=== PATIENT | female | born 1965 | race African-American/Black ===

== ENCOUNTER 2017-05-11 23:19 | Emergency (ER) | payer OTHER ==
[~2017-05-11] VITALS: Ht 172.7 cm; Wt 83.9 kg
[~2017-05-11 23:19] MED LIST: ACETAMINOPHEN-1 EAC1 PO; AMITRIPTYLINE H50 M2 PO; ANAPROX DS550 MG PO; ATENOLOL 25 MG25 M1; ATENOLOL-CHLOR1 EAC2; AZITHROMYCIN 2250 MG PO; BENICAR20 MG PO; CARISOPRODOL; CARISOPRODOL 3350 MG PO; CIPROFLOXACIN500 M3 PO; CITROMA296 ML PO; CLEOCIN HCL300 MG PO; COLACE100 MG PO; FLEET ENEMA EX230 ML RC; FLEXERIL PO; GLUCOPHAGE XR750 MG PO; GLYBURIDE 2.52.5 M1 PO; HYDROCHLOROTHIA25 M1; HYDROCODON-ACE1 EAC7 PO; HYDROCODON-ACE1 EACH PO; HYDROCODONE; INDAPAMIDE1.25 MG PO; KEFLEX500 MG; KEFLEX500 MG PO; KLOR-CON 1010 MEQ PO; LOPRESSOR 50 MG50 M1; MEDROLDOSEPACK PO; MIRALAX17 GM PO; NEURONTIN 300300 M1 PO; NORCO 5-325 TA1 EAC1 PO; NORCO 5-325 TA1 EACH PO; NORFLEX100 MG PO; PREDNISONE 20 M20 M1 PO; PROAIR HFA8.5 GM PO; PROMETHAZINE D480 ML PO; ROBAXIN500 MG PO; SOMA250 MG PO; TOPROL XL25 MG PO; TUSSIONEX PENN473 ML PO; ULTRAM 50MG TAB50 MG PO; VENTOLIN HFA 1818 GM INH; ZOFRAN ODT4 MG PO; ZPAK PO
[2017-05-11 23:23] VITALS: BP 124/81
[2017-05-11] MEDS ORDERED: ZPAK PO (23:44)
[2017-05-11] MEDS ORDERED: PREDNISONE 20 M20 M1 PO (23:44)
== END 2017-05-11 23:49 | disposition home or self-care (01) ==
LOC: M.ERS 23:19
DX: J06.9 Acute upper respiratory infection, unspecified (principal); I10 Essential (primary) hypertension; E11.40 Type 2 diabetes mellitus with diabetic neuropathy, unspecified; G89.29 Other chronic pain; M54.9 Dorsalgia, unspecified; F17.210 Nicotine dependence, cigarettes, uncomplicated; Z90.710 Acquired absence of both cervix and uterus; Z90.89 Acquired absence of other organs; Z88.8 Allergy status to other drugs, medicaments and biological substances; Z88.0 Allergy status to penicillin; Z88.2 Allergy status to sulfonamides; Z88.6 Allergy status to analgesic agent

== ENCOUNTER 2018-05-03 16:44 | Emergency (ER) | payer OTHER ==
[~2018-05-03] VITALS: Ht 172.7 cm; Wt 99.8 kg
[2018-05-03 18:32] LABS: ABSOLUTE BASOPHILS 0.1 thou/uL (0.0-0.2); ABSOLUTE LYMPHOCYTES 3.1 thou/uL (0.8-5.3); ABSOLUTE MONOCYTES 0.4 thou/uL (0.0-1.2); ABSOLUTE NEUTROPHILS 6.9 thou/uL (1.6-8.1); BASOPHILS 0.9 %; EOSINOPHILS 0.2 %; HEMATOCRIT 38.3 % (37.0-47.0); HEMOGLOBIN 12.4 gm/dL (12.0-15.0); LYMPHOCYTES 29.5 %; MCH 29.6 pg (26.0-34.0); MCHC 32.3 g/dL (28.0-37.0); MCV 91.6 fL (80.0-100.0); MONOCYTES 4.2 %; MPV 9.5 fl. (7.2-11.1); NUCLEATED RBCS 0 /100WBC; PLATELET COUNT* 296 thou/uL (150-400); POLYS 65.2 %; RBC 4.18 mil/uL (4.20-5.00); RDW-CV 16.6 % (10.5-14.5); WBC 10.6 thou/uL (4.0-11.0)
[2018-05-03 18:42] LABS: ANION GAP 8 mmol/L (7-16); BUN 16 mg/dL (7-18); CALCIUM 9.1 mg/dL (8.5-10.1); CHLORIDE 105 mmol/L (98-107); CO2 27 mmol/L (21-32); CREATININE 0.8 mg/dL (0.6-1.3); GLUCOSE 158 mg/dL (70-99); POTASSIUM 3.6 mmol/L (3.5-5.1); SODIUM 140 mmol/L (136-145)
[2018-05-03 18:56] LABS: ALBUMIN 3.4 g/dL (3.4-5.0); ALKALINE PHOSPHATASE 83 U/L (46-116); SGOT 17 U/L (15-37); SGPT 22 U/L (30-65); TOTAL BILIRUBIN 0.1 mg/dL (<0.1-1.0); TROPONIN-I LEVEL <0.06 ng/mL (<0.06)
[2018-05-03] MEDS ORDERED: PROMETHAZINE-C473 ML PO (19:34)
[2018-05-03 19:51] VITALS: BP 133/68
--- NOTE | 2018-05-04 11:05 | EKG ---
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 : 1965 Requested By: Samira Cuellar Order Number: [id number] MD: Feliz Velásquez Measurements Intervals [place] Rate: 92 P: 0 NE: 39 QRS: -8 QRSD: 93 T: 46 QT: 463 QTc: 573 Interpretive Statements Sinus rhythm Short NE interval Borderline abnrm T, anterolateral leads Prolonged QT interval Artifact in lead(s) I,II,III,aVR,aVL,aVF,V1,V2,V3,V4,V5,V6 Compared to ECG 03/05/2014 22:59:05 artifact noted Electronically Signed On 05-04-2018 11:05:44 PRODUCT DEVELOPMENT ASSISTANT by Feliz Velásquez [email or web address] <ELECTRONICALLY SIGNED> By: Feliz Velásquez MD, FAC 05/04/18 1105 1828 1828 Feliz Velásquez MD, [facility] /EPI
== END 2018-05-03 19:53 | disposition home or self-care (01) ==
LOC: M.ERS 16:44
PROVIDERS: Physician Assistant
DX: J18.9 Pneumonia, unspecified organism (principal); F17.210 Nicotine dependence, cigarettes, uncomplicated; I10 Essential (primary) hypertension; E11.9 Type 2 diabetes mellitus without complications; Z88.8 Allergy status to other drugs, medicaments and biological substances; Z88.0 Allergy status to penicillin; Z88.2 Allergy status to sulfonamides; Z88.6 Allergy status to analgesic agent; Z90.710 Acquired absence of both cervix and uterus; Z90.89 Acquired absence of other organs

== ENCOUNTER 2019-12-13 13:47 | Observation (INO) | payer OTHER ==
[~2019-12-13] VITALS: Ht 172.7 cm; Wt 93.6 kg
[~2019-12-13 13:47] MED LIST changes: +PROMETHAZINE-C473 ML PO
[2019-12-13 13:59] VITALS: BP 157/88
[2019-12-13 14:30] LABS: ABSOLUTE BASOPHILS 0.2 thou/uL (0.0-0.2); ABSOLUTE EOSINOPHILS 0.3 thou/uL (0.0-0.7); ABSOLUTE LYMPHOCYTES 2.8 thou/uL (0.8-5.3); ABSOLUTE MONOCYTES 0.7 thou/uL (0.0-1.2); ABSOLUTE NEUTROPHILS 6.1 thou/uL (1.6-8.1); BASOPHILS 1.6 %; EOSINOPHILS 3.4 %; HEMOGLOBIN 12.2 gm/dL (12.0-15.0); LYMPHOCYTES 27.9 %; MCH 29.4 pg (26.0-34.0); MONOCYTES 7.1 %; MPV 8.8 fl. (7.2-11.1); NUCLEATED RBCS 0 /100WBC; PLATELET COUNT* 323 thou/uL (150-400); RBC 4.16 mil/uL (4.20-5.00); RDW-CV 17.8 % (10.5-14.5); WBC 10.1 thou/uL (4.0-11.0)
[2019-12-13 14:35] LABS: CALCIUM 8.6 mg/dL (8.5-10.1); CREATININE 1.5 mg/dL (0.6-1.3); POTASSIUM 3.4 mmol/L (3.5-5.1)
[2019-12-13 14:39] LABS: MAGNESIUM 1.6 mg/dL (1.8-2.4); TOTAL BILIRUBIN 0.2 mg/dL (<0.1-1.0); TOTAL PROTEIN 7.5 g/dL (6.4-8.2)
[2019-12-13 15:02] LABS: INR 1.2; PROTIME 12.5 Seconds (9.20-11.50)
[2019-12-13 15:18] LABS: BE -2.5 mmol/L (-2 to +3); PCO2 37.8 mmHg (35.0-45.0); PO2 67.8 mmHg (75.0-100.0); pH 7.384 (7.340-7.450)
[2019-12-13 15:52] LABS: URINE BLOOD TRACE (Negative); URINE CLARITY CLEAR; URINE COLOR YELLOW; URINE GLUCOSE-RANDOM NEGATIVE (Negative); URINE KETONES NEGATIVE (Negative); URINE NITRITE-REFLEX NEGATIVE (Negative); URINE PROTEIN 1+ (Negative); URINE SPECIFIC GRAVITY >= 1.030 (1.005-1.030); URINE UROBILINOGEN 0.2 E.U./dl (0.2-1.0)
[2019-12-13 15:53] LABS: ICTOTEST (BILI CONFIRMATORY) ND (Negative); URINE BILIRUBIN 1+ (Negative); URINE LEUKOCYTES-REFLEX 2+ (Negative)
[2019-12-13] MEDS ORDERED: NORCO 10-325 T1 EACH PO (15:57)
[2019-12-13 16:01] LABS: BACTERIA-REFLEX >30 Many /HPF (None Seen); CASTS None Seen /LPF (None Seen); CRYSTALS None Seen /LPF (None Seen); SQUAMOUS 0-3 Few /LPF (0-3); URINE RBC 0-2 Rare /HPF (0-2)
--- NOTE | 2019-12-13 16:08 | EKG ---
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 : 1965 Requested By: Samira Stewart Order Number: [id number] MD: Feliz Velásquez Measurements Intervals [place] Rate: 80 P: 34 FL: 174 QRS: -3 QRSD: 109 T: -17 QT: 403 QTc: 465 Interpretive Statements Sinus rhythm nonspecific t wave changes Baseline wander in lead(s) II,III,aVR,aVL,aVF Compared to ECG 05/03/2018 18:28:27 Short FL interval no longer present Prolonged QT interval no longer present Electronically Signed On 12-13-2019 16:08:37 CDT by Feliz Velásquez [email or web address] <ELECTRONICALLY SIGNED> By: Feliz Velásquez MD, FAC 12/13/19 1608 1356 1356 Feliz Velásquez MD, FAC /EPI
[2019-12-13 16:58] LABS: AMP/METHAMP Negative (Negative); BARBITURATES Negative (Negative); BENZODIAZEPINES Negative (Negative); COCAINE Negative (Negative); METHADONE Negative (Negative); OPIATES POSITIVE (Negative); PCP Negative (Negative); THC Negative (Negative)
[2019-12-13 20:00] VITALS: BP 113/68
[2019-12-13 20:20] VITALS: BP 104/75
[2019-12-14] VITALS: BP 144/83
[2019-12-14 04:00] VITALS: BP 127/73
[2019-12-14 08:00] VITALS: BP 137/95
[2019-12-14 12:00] VITALS: BP 125/73
[2019-12-14] MEDS ORDERED: CEFDINIR300 MG PO (14:36)
[2019-12-14] MEDS ORDERED: VITAMIN B-1100 M1 PO (14:37)
[2019-12-14 14:58] VITALS: BP 125/73
[2019-12-14] MEDS ORDERED: GLYBURIDE 2.52.5 MG PO (14:58)
== END 2019-12-14 15:26 | disposition home or self-care (01) ==
LOC: M.ERS 13:47 → M.TBA-ER 16:36 → M.2W 16:36
PROVIDERS: Personal Emergency Response Attendant; ADMIT Internal Medicine; ATTEND Internal Medicine
DX: J96.21 Acute and chronic respiratory failure with hypoxia (principal); G93.41 Metabolic encephalopathy; E87.2 Acidosis; N39.0 Urinary tract infection, site not specified; R41.82 Altered mental status, unspecified; R53.1 Weakness; R27.0 Ataxia, unspecified; J18.9 Pneumonia, unspecified organism; G89.29 Other chronic pain; E11.40 Type 2 diabetes mellitus with diabetic neuropathy, unspecified; I10 Essential (primary) hypertension; F17.210 Nicotine dependence, cigarettes, uncomplicated; Z20.828 Contact with and (suspected) exposure to other viral communicable diseases; Z79.84 Long term (current) use of oral hypoglycemic drugs; Z79.899 Other long term (current) drug therapy; Z86.19 Personal history of other infectious and parasitic diseases

== ENCOUNTER 2020-01-14 04:00 | Emergency (ER) | payer OTHER ==
[~2020-01-14] VITALS: Ht 172.7 cm; Wt 83.9 kg
[~2020-01-14 04:00] MED LIST changes: +CEFDINIR300 MG PO; +GLYBURIDE 2.52.5 MG PO; +NORCO 10-325 T1 EACH PO; +VITAMIN B-1100 M1 PO
[2020-01-14 04:37] LABS: URINE BILIRUBIN NEGATIVE (Negative); URINE BLOOD NEGATIVE (Negative); URINE CLARITY CLEAR; URINE COLOR YELLOW; URINE GLUCOSE-RANDOM 2+ (Negative); URINE KETONES NEGATIVE (Negative); URINE LEUKOCYTES-REFLEX NEGATIVE (Negative); URINE NITRITE-REFLEX NEGATIVE (Negative); URINE PROTEIN NEGATIVE (Negative); URINE SPECIFIC GRAVITY >= 1.030 (1.005-1.030); URINE UROBILINOGEN 0.2 E.U./dl (0.2-1.0)
[2020-01-14 04:37] LABS: ABSOLUTE EOSINOPHILS 0.3 thou/uL (0.0-0.7); ABSOLUTE LYMPHOCYTES 2.9 thou/uL (0.8-5.3); ABSOLUTE MONOCYTES 0.4 thou/uL (0.0-1.2); ABSOLUTE NEUTROPHILS 2.8 thou/uL (1.6-8.1); BASOPHILS 0.5 %; EOSINOPHILS 4.1 %; HEMATOCRIT 36.2 % (37.0-47.0); HEMOGLOBIN 11.6 gm/dL (12.0-15.0); LYMPHOCYTES 45.5 %; MCH 28.7 pg (26.0-34.0); MCHC 32.2 g/dL (28.0-37.0); MCV 89.2 fL (80.0-100.0); MONOCYTES 6.5 %; MPV 9.2 fl. (7.2-11.1); NUCLEATED RBCS 0 /100WBC; PLATELET COUNT* 214 thou/uL (150-400); POLYS 43.4 %; RBC 4.06 mil/uL (4.20-5.00); WBC 6.5 thou/uL (4.0-11.0)
[2020-01-14 04:44] LABS: AMP/METHAMP Negative (Negative); BARBITURATES Negative (Negative); BENZODIAZEPINES POSITIVE (Negative); COCAINE Negative (Negative); METHADONE Negative (Negative); OPIATES POSITIVE (Negative); PCP Negative (Negative); THC Negative (Negative)
[2020-01-14 04:55] LABS: CALCIUM 8.6 mg/dL (8.5-10.1); CREATININE 0.8 mg/dL (0.6-1.3); POTASSIUM 3.7 mmol/L (3.5-5.1)
[2020-01-14 05:07] LABS: ALBUMIN 3.3 g/dL (3.4-5.0); MAGNESIUM 1.6 mg/dL (1.8-2.4); TOTAL BILIRUBIN 0.1 mg/dL (<0.1-1.0)
[2020-01-14 08:04] VITALS: BP 185/88
--- NOTE | 2020-01-14 18:29 | EKG ---
[place] [address] ELECTROCARDIOGRAM REPORT Name: MARK PATEL Room: [facility]#: [id number] Admission: 01/14/20 Attend Phys: Discharge: 01/14/20 Date of : 65 Date of Service: 01/14/20 0432 Report #: [id number] THIS REPORT FOR: //name// 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
== END 2020-01-14 08:05 | disposition still patient (30) ==
LOC: M.ERS 04:00
PROVIDERS: Emergency Medicine
DX: T42.71XA Poisoning by unspecified antiepileptic and sedative-hypnotic drugs, accidental (unintentional), initial encounter (principal); I10 Essential (primary) hypertension; E11.9 Type 2 diabetes mellitus without complications; Z87.891 Personal history of nicotine dependence; Z88.6 Allergy status to analgesic agent; Z88.0 Allergy status to penicillin; Z88.2 Allergy status to sulfonamides; Z88.8 Allergy status to other drugs, medicaments and biological substances; Z79.899 Other long term (current) drug therapy; Z90.710 Acquired absence of both cervix and uterus; Z98.890 Other specified postprocedural states; Y92.89 Other specified places as the place of occurrence of the external cause

== ENCOUNTER 2020-11-06 12:39 | Emergency (ER) | payer OTHER ==
[~2020-11-06] VITALS: Ht 172.7 cm; Wt 83.9 kg
[2020-11-06] MEDS ORDERED: JANUMET 50-1,01 EACH PO (13:03)
[2020-11-06] MEDS ORDERED: GLIPIZIDE 10 MG10 MG PO (13:03)
[2020-11-06 14:32] LABS: MPV 8.4 fl. (7.2-11.1); NUCLEATED RBCS 0 /100WBC
[2020-11-06 14:34] LABS: ABSOLUTE BASOPHILS 0.2 thou/uL (0.0-0.2); ABSOLUTE EOSINOPHILS 0.3 thou/uL (0.0-0.7); ABSOLUTE LYMPHOCYTES 3.7 thou/uL (0.8-5.3); ABSOLUTE MONOCYTES 0.6 thou/uL (0.0-1.2); ABSOLUTE NEUTROPHILS 3.2 thou/uL (1.6-8.1); BASOPHILS 2.6 %; EOSINOPHILS 3.3 %; HEMATOCRIT 42.4 % (37.0-47.0); HEMOGLOBIN 13.6 gm/dL (12.0-15.0); LYMPHOCYTES 46.6 %; MCH 27.8 pg (26.0-34.0); MCV 86.9 fL (80.0-100.0); PLATELET COUNT* 417 thou/uL (150-400); POLYS 40.5 %; RBC 4.88 mil/uL (4.20-5.00); RDW-CV 19.5 % (10.5-14.5)
[2020-11-06 14:44] LABS: CALCIUM 8.9 mg/dL (8.5-10.1); POTASSIUM 3.9 mmol/L (3.5-5.1)
[2020-11-06 14:48] LABS: ALBUMIN 4.2 g/dL (3.4-5.0); TOTAL BILIRUBIN 0.2 mg/dL (<0.1-1.0)
--- NOTE | 2020-11-06 15:35 | EKG ---
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: : 1965 Requested By: Roberta Fontanez Order Number: [id number] MD: Feliz Velásquez Measurements Intervals [place] Rate: 62 P: 54 CT: 144 QRS: 9 QRSD: 97 T: 29 QT: 480 QTc: 488 Interpretive Statements Sinus rhythm artifact noted Probable left atrial enlargement Anteroseptal infarct, age indeterminate Lateral leads are also involved Compared to ECG 01/14/2020 04:32:33 Myocardial infarct finding now present Electronically Signed On 11-06-2020 15:35:08 CDT by Feliz Velásquez [email or web address] <ELECTRONICALLY SIGNED> By: Feliz Velásquez MD, [facility] 11/06/20 1535 1404 1404 Feliz Velásquez MD, [facility] /EPI
[2020-11-06 16:29] VITALS: BP 174/72
== END 2020-11-06 16:30 | disposition home or self-care (01) ==
LOC: M.ERS 12:39
PROVIDERS: Physician Assistant
DX: R51.9 Headache, unspecified (principal); I10 Essential (primary) hypertension; E11.9 Type 2 diabetes mellitus without complications; Z90.710 Acquired absence of both cervix and uterus; Z90.89 Acquired absence of other organs; Z88.0 Allergy status to penicillin; Z88.2 Allergy status to sulfonamides; Z88.6 Allergy status to analgesic agent; Z88.8 Allergy status to other drugs, medicaments and biological substances; Z87.891 Personal history of nicotine dependence

== ENCOUNTER 2021-03-31 00:20 | Emergency (ER) | payer OTHER ==
[~2021-03-31] VITALS: Ht 172.7 cm; Wt 83.9 kg
[~2021-03-31 00:20] MED LIST changes: +GLIPIZIDE 10 MG10 MG PO; +JANUMET 50-1,01 EACH PO
[2021-03-31] MEDS ORDERED: HYDROCODON-ACE1 EAC8 PO (05:15)
[2021-03-31 06:06] VITALS: BP 149/108
== END 2021-03-31 06:06 | disposition home or self-care (01) ==
LOC: M.ERS 00:20
DX: M25.562 Pain in left knee (principal); I10 Essential (primary) hypertension; E11.9 Type 2 diabetes mellitus without complications; Z90.710 Acquired absence of both cervix and uterus; Z90.89 Acquired absence of other organs; Z79.899 Other long term (current) drug therapy; Z87.891 Personal history of nicotine dependence; Z88.0 Allergy status to penicillin; Z88.2 Allergy status to sulfonamides; Z88.5 Allergy status to narcotic agent; Z88.6 Allergy status to analgesic agent

== ENCOUNTER 2021-04-13 17:46 | Emergency (ER) | payer OTHER ==
[~2021-04-13] VITALS: Ht 172.7 cm; Wt 83.9 kg
[~2021-04-13 17:46] MED LIST changes: +HYDROCODON-ACE1 EAC8 PO
[2021-04-14] MEDS ORDERED: BUTALB-APAP-CA1 EACH PO (01:22)
[2021-04-14 01:26] VITALS: BP 156/94
== END 2021-04-14 01:27 | disposition home or self-care (01) ==
LOC: M.ERS 17:46
DX: G43.909 Migraine, unspecified, not intractable, without status migrainosus (principal); I10 Essential (primary) hypertension; E11.9 Type 2 diabetes mellitus without complications; Z90.710 Acquired absence of both cervix and uterus; Z90.89 Acquired absence of other organs; Z98.890 Other specified postprocedural states; Z79.899 Other long term (current) drug therapy; Z88.8 Allergy status to other drugs, medicaments and biological substances; Z88.2 Allergy status to sulfonamides; Z88.0 Allergy status to penicillin; Z87.891 Personal history of nicotine dependence

== ENCOUNTER 2021-05-10 13:39 | Emergency (ER) | payer OTHER ==
[~2021-05-10] VITALS: Ht 172.7 cm; Wt 88.5 kg
[~2021-05-10 13:39] MED LIST changes: +BUTALB-APAP-CA1 EACH PO
[2021-05-10 14:28] LABS: URINE BILIRUBIN NEGATIVE (Negative); URINE BLOOD NEGATIVE (Negative); URINE CLARITY CLEAR; URINE COLOR YELLOW; URINE GLUCOSE-RANDOM 3+ (Negative); URINE KETONES TRACE (Negative); URINE LEUKOCYTES NEGATIVE (Negative); URINE NITRITE NEGATIVE (Negative); URINE PROTEIN NEGATIVE (Negative); URINE SPECIFIC GRAVITY >= 1.030 (1.005-1.030); URINE UROBILINOGEN 0.2 E.U./dl (0.2-1.0)
[2021-05-10 14:36] LABS: AMP/METHAMP Negative (Negative); BARBITURATES Negative (Negative); BENZODIAZEPINES Negative (Negative); COCAINE Negative (Negative); METHADONE Negative (Negative); OPIATES Negative (Negative); PCP Negative (Negative); THC Negative (Negative)
[2021-05-10] MEDS ORDERED: NORCO7.5 PO (15:10)
[2021-05-10] MEDS ORDERED: TIZANIDINE HCL4 M1 PO (15:12)
[2021-05-10] MEDS ORDERED: DOXYCYCLINE 10100 MG PO (15:12)
[2021-05-10] MEDS ORDERED: LYRICA150 MG PO (15:13)
[2021-05-10] MEDS ORDERED: TRILEPTAL150 MG PO (15:13)
[2021-05-10] MEDS ORDERED: NORVASC5 MG PO (15:14)
[2021-05-10] MEDS ORDERED: AMBIEN 10 MG TA10 MG PO (15:14)
[2021-05-10] MEDS ORDERED: ZOFRAN ODT4 MG DISSOLVE (15:14)
[2021-05-10 15:57] LABS: ABSOLUTE BASOPHILS 0.1 thou/uL (0.0-0.2); ABSOLUTE EOSINOPHILS 0.2 thou/uL (0.0-0.7); ABSOLUTE LYMPHOCYTES 3.5 thou/uL (0.8-5.3); ABSOLUTE MONOCYTES 0.7 thou/uL (0.0-1.2); BASOPHILS 1.2 %; EOSINOPHILS 2.2 %; HEMATOCRIT 41.6 % (37.0-47.0); HEMOGLOBIN 13.3 gm/dL (12.0-15.0); LYMPHOCYTES 36.8 %; MCH 29.7 pg (26.0-34.0); MCV 92.7 fL (80.0-100.0); MONOCYTES 6.9 %; MPV 8.8 fl. (7.2-11.1); NUCLEATED RBCS 0 /100WBC; PLATELET COUNT* 233 thou/uL (150-400); POLYS 52.9 %; RBC 4.48 mil/uL (4.20-5.00); RDW-CV 16.6 % (10.5-14.5); WBC 9.5 thou/uL (4.0-11.0)
[2021-05-10 16:06] LABS: CALCIUM 8.7 mg/dL (8.5-10.1); POTASSIUM 3.4 mmol/L (3.5-5.1)
[2021-05-10 16:29] LABS: ACETAMINOPHEN < 2 ug/mL (10-30); ALCOHOL < 10 mg/dL (<10); SALICYLATE 2.8 mg/dL (2.8-20.0)
[2021-05-10 19:25] VITALS: BP 147/101
--- NOTE | 2021-05-11 11:15 | EKG ---
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: KRYSTAL : 1965 Requested By: Allen Chowdhury Order Number: [id number] MD: Jamie Marie Measurements Intervals [place] Rate: 92 P: 31 AR: 161 QRS: -15 QRSD: 100 T: -87 QT: 406 QTc: 503 Interpretive Statements Sinus rhythm Probable left atrial enlargement Borderline left axis deviation Abnormal R-wave progression, late transition Abnormal T, consider ischemia, anterior leads Prolonged QT interval Compared to ECG 11/06/2020 14:04:51 T-wave abnormality has evolved Possible ischemia now present Prolonged QT interval now present Myocardial infarct finding no longer present Electronically Signed On 05-11-2021 11:14:52 POLICE SUPERINTENDENT by Jamie Marie [email or web address] <ELECTRONICALLY SIGNED> By: Jamie Marie MD, [facility] 05/11/21 1114 1445 1445 Jamie Marie MD, [facility] /EPI
== END 2021-05-10 19:25 | disposition home or self-care (01) ==
LOC: M.ERS 13:39
PROVIDERS: Emergency Medicine
DX: R53.1 Weakness (principal); Z20.822 Contact with and (suspected) exposure to COVID-19; I10 Essential (primary) hypertension; G43.909 Migraine, unspecified, not intractable, without status migrainosus; E11.9 Type 2 diabetes mellitus without complications; Z90.710 Acquired absence of both cervix and uterus; Z90.89 Acquired absence of other organs; Z79.899 Other long term (current) drug therapy; Z87.891 Personal history of nicotine dependence; Z88.0 Allergy status to penicillin; Z88.2 Allergy status to sulfonamides; Z88.5 Allergy status to narcotic agent